=== PATIENT | female | born 1940 | race Caucasian/White ===

== ENCOUNTER 2018-02-07 15:00 | Emergency (ER) | payer OTHER ==
[~2018-02-07] VITALS: Ht 162.6 cm; Wt 74.8 kg
[~2018-02-07 15:00] MED LIST: GILTUSS HC SYR473 ML PO; ZOFRAN4 MG PO
== END 2018-02-07 22:54 | disposition home or self-care (01) ==
LOC: ER 15:00
DX: K29.60 Other gastritis without bleeding (principal)

== ENCOUNTER 2018-07-01 09:52 | Outpatient (CLI) | payer OTHER | END 2018-07-01 10:07 | disposition home or self-care (01) | LOC: EKG 09:52 | DX: K42.9 Umbilical hernia without obstruction or gangrene (principal); I10 Essential (primary) hypertension ==

== ENCOUNTER 2019-08-14 09:00 | Outpatient (CLI) | payer OTHER | END 2019-08-14 09:14 | disposition home or self-care (01) | LOC: NUCLEAR 09:00 | PROVIDERS: ATTEND Internal Medicine Cardiovascular Disease | DX: I87.2 Venous insufficiency (chronic) (peripheral) (principal); I82.523 Chronic embolism and thrombosis of iliac vein, bilateral ==

== ENCOUNTER → 2021-09-27 | Outpatient (CLI) | payer OTHER | END | disposition home or self-care (01) | LOC: NUCLEAR 08:00 | PROVIDERS: ATTEND Internal Medicine Cardiovascular Disease | DX: I87.2 Venous insufficiency (chronic) (peripheral) (principal) ==

== ENCOUNTER 2021-10-08 11:42 | Emergency (ER) | payer OTHER ==
[~2021-10-08] VITALS: Ht 162.6 cm; Wt 74.4 kg
[2021-10-08] MEDS ORDERED: LOSARTAN-HCTZ1 EAC1 PO (11:54)
[2021-10-08] MEDS ORDERED: PLAVIX75 MG PO (11:54)
[2021-10-08] MEDS ORDERED: CELEXA20 MG PO (11:55)
[2021-10-08] MEDS ORDERED: CRESTOR10 MG PO (11:55)
[2021-10-08] MEDS ORDERED: CLONAZEPAM0.25 MG PO (11:56)
[2021-10-08] MEDS ORDERED: PEPCID AC20 MG PO (11:56)
[2021-10-08] MEDS ORDERED: VERAPAMIL HCL80 MG PO (11:56)
[2021-10-08] MEDS ORDERED: MIRALAX17 GM PO (11:56)
[2021-10-08] MEDS ORDERED: VITAMIN D310 MCG/11 PO (11:57)
== END 2021-10-08 17:33 | disposition home or self-care (01) ==
LOC: ER 11:42
DX: S01.82XA Laceration with foreign body of other part of head, initial encounter (principal); S01.521A Laceration with foreign body of lip, initial encounter; W18.30XA Fall on same level, unspecified, initial encounter; Y93.01 Activity, walking, marching and hiking; Y92.480 Sidewalk as the place of occurrence of the external cause; Z88.6 Allergy status to analgesic agent; S02.2XXA Fracture of nasal bones, initial encounter for closed fracture

== ENCOUNTER 2021-10-18 11:24 | Emergency (ER) | payer OTHER ==
[~2021-10-18] VITALS: Ht 162.6 cm; Wt 74.4 kg
[~2021-10-18 11:24] MED LIST changes: +CELEXA20 MG PO; +CLONAZEPAM0.25 MG PO; +CRESTOR10 MG PO; +LOSARTAN-HCTZ1 EAC1 PO; +MIRALAX17 GM PO; +PEPCID AC20 MG PO; +PLAVIX75 MG PO; +VERAPAMIL HCL80 MG PO; +VITAMIN D310 MCG/11 PO
== END 2021-10-18 12:47 | disposition home or self-care (01) ==
LOC: ER 11:24
DX: Z48.02 Encounter for removal of sutures (principal); Z88.6 Allergy status to analgesic agent; Z88.8 Allergy status to other drugs, medicaments and biological substances

== ENCOUNTER 2022-10-18 09:39 | Outpatient (CLI) | payer OTHER | END 2022-10-18 09:48 | disposition home or self-care (01) | LOC: RAD 09:39 | PROVIDERS: ATTEND Internal Medicine Cardiovascular Disease | DX: M12.9 Arthropathy, unspecified (principal) ==

== ENCOUNTER 2024-11-18 11:19 | Emergency (ER) | payer OTHER ==
[~2024-11-18] VITALS: Ht 162.6 cm; Wt 68.9 kg
[2024-11-18 11:49] VITALS: BP 152/87; O2SAT 98
[2024-11-18] MEDS ORDERED: XANAX0.25 MG PO (11:51)
[2024-11-18] MEDS ORDERED: COZAAR100 MG PO (11:51)
[2024-11-18] MEDS ORDERED: FLECAINIDE ACET50 MG PO (11:52)
[2024-11-18] MEDS ORDERED: PROTONIX40 MG PO (11:52)
[2024-11-18] MEDS ORDERED: LIPITOR20 MG PO (11:52)
[2024-11-18] MEDS ORDERED: ELIQUIS5 MG PO (11:52)
[2024-11-18] MEDS ORDERED: PEPCID AC20 MG PO (11:53)
[2024-11-18] MEDS ORDERED: MIRALAX510 GM (11:53)
[2024-11-18] MEDS ORDERED: HYDRALAZINE HCL50 MG PO (11:53)
[2024-11-18] MEDS ORDERED: FAMOTIDINE/PF 20 MG in 0.9 % SODIUM CHLORIDE 8 ML IV PUSH STA (12:58)
[2024-11-18] MEDS ORDERED: ONDANSETRON HCL 2 MG/ML VIAL IV ONE (13:00)
[2024-11-18] MEDS ORDERED: ONDANSETRON HCL 2 MG/ML VIAL ONE (13:11)
[2024-11-18] MEDS ORDERED: FAMOTIDINE/PF 20 MG/2 ML VIAL ONE (13:12)
[2024-11-18 13:40] LABS: BASO % 0.8 % (0.1-1.2); EOS # 0.17 (0.04-0.54); EOS % 2.6 % (0.7-7.0); LYMPH # 1.27 (1.18-3.74); LYMPH % 19.6 % (19.3-53.1); MEAN PLATELET VOLUME 10.40 fl (9.4-12.4); MONO # 0.67 (0.24-0.82); MONO % 10.4 % (4.7-12.5); NEUT # 4.27 (1.56-6.13); NEUT % 66.0 % (34.0-71.1); RED CELL DISTRIBUTION WIDTH 15.6 % (11.6-14.4)
[2024-11-18 14:20] LABS: ALT/SGPT 18.0 U/L (12-78); AST/SGOT 17.0 U/L (15-37); BILIRUBIN TOTAL 0.76 mg/dL (0.3-1.2); BUN CREA RATIO 22.0 (7.0-25.0); CREATININE SERUM 0.97 mg/dL (0.55-1.02); GFR 54.84; GLOBULINA 3.1 G/DL (2.4-3.5); GLUCOSE FASTING 99.0 mg/dL (65-100); LDH 209.0 U/L (84-246); OSMOLALITY SERUM 279.0 MOSM/KG (275-295); PHOSPHOKINASE CREATININE 94.0 U/L (26-192)
== END 2024-11-18 15:15 | disposition home or self-care (01) ==
LOC: ER 11:19
PROVIDERS: General Practice
DX: S09.8XXA Other specified injuries of head, initial encounter (principal); X58.XXXA Exposure to other specified factors, initial encounter; Y93.89 Activity, other specified; Y92.89 Other specified places as the place of occurrence of the external cause; Y99.8 Other external cause status; R55 Syncope and collapse; Z88.6 Allergy status to analgesic agent; I10 Essential (primary) hypertension
CPT/HCPCS: 36415; 70450; 93005; 96365; 99284; J2405; J3490